=== PATIENT | female | born 1935 | race Caucasian/White ===

== ENCOUNTER 2018-04-10 14:44 | Inpatient (IN) | payer OTHER, MEDICARE ==
[~2018-04-10] VITALS: Ht 160 cm; Wt 67.1 kg
[~2018-04-10 14:44] MED LIST: BENADRYL25 MG PO; BIOTIN1 MG PO; BIOTIN1000 MCG PO; CALTRATE 600 +1 EAC1 PO; CYANOCOBAL1000 MCG/2 IM; DAILY MULTIPLE1 EACH PO; GLUCOSAMINE CO1 EAC3 PO; IRON325 M1 PO; LETROZOLE2.5 MG PO; OXYCODONE HCL5 MG PO; SENNA PLUS TAB1 EACH PO; TYLENOL REGULA325 MG PO; VITAMINS; XARELTO10 MG PO; [UNRECOGNIZED DRUG - OTHER]
[2018-04-10 15:54] LABS: BASOPHIL (%) 0.6 % (0-1); EOSINOPHIL (%) 0.5 % (0-5); HEMOGLOBIN 13.7 G/DL (11.9-15.5); IMMATURE GRANULOCYTE (%) 0.3 % (0.0-0.7); LYMPHOCYTE (%) 20.9 % (15-42); LYMPHOCYTE COUNT 1.3 K/uL (1.0-2.8); MCH 29.7 PG (29.0-34.0); MCHC 33.4 G/DL (30.0-36.0); MCV 88.9 FL (83-99); MONOCYTE (%) 12.3 % (3-12); MONOCYTE COUNT 0.8 K/uL (0-0.8); NEUTROPHIL (%) 65.4 % (45-76); NEUTROPHIL COUNT 4.1 K/uL (1.8-6.4); PLATELET COUNT 272 K/uL (156-360); RBC DIS.WIDTH-CV 15.2 % (11.8-14.6); RBC DIS.WIDTH-SD 49.3 % (39-53); RED BLOOD COUNT 4.61 M/uL (3.80-5.20); WHITE BLOOD COUNT 6.3 K/uL (4.1-10.2)
[2018-04-10 16:06] LABS: ALBUMIN 3.3 g/dL (3.2-4.8); CHLORIDE 106 mEq/L (99-109); POTASSIUM 4.6 mEq/L (3.7-5.4); SODIUM 137 mEq/L (136-147)
[2018-04-10 16:09] LABS: GLUCOSE 107 mg/dL (70-99); TOTAL PROTEIN 5.7 g/dL (6.4-8.3)
[2018-04-10 16:11] LABS: TOTAL BILIRUBIN 0.9 mg/dL (0.0-1.0)
[2018-04-10 16:12] LABS: ALKALINE PHOSPHATASE 71 IU/L (3-129); CREATININE 0.9 mg/dL (0.6-1.3); GFR ESTIMATE (CALCULATED) > 59 mL/min/
[2018-04-10 16:13] LABS: UREA NITROGEN (BUN) 23 mg/dL (9-23)
[2018-04-10 16:14] LABS: AST (GOT) 70 IU/L (2-34)
[2018-04-10 16:15] LABS: ALT (GPT) 102 IU/L (3-49)
[2018-04-10] MEDS ORDERED: PROAIR HFA8.5 GM IH (16:59)
[2018-04-10] MEDS ORDERED: LEVOFLOXACIN750 MG PO (17:00)
[2018-04-10] MEDS ORDERED: PHENERGAN DM SYR1 ML PO (17:04)
[2018-04-10 18:10] LABS: APPEARANCE CLEAR ((CLEAR)); BILIRUBIN NEGATIVE; BLOOD NEGATIVE; COLOR YELLOW ((YELLOW)); GLUCOSE (STRIP) NEGATIVE; KETONES 5; LEUKOCYTES NEGATIVE; NITRITE NEGATIVE; PROTEIN (STRIP) 30; SPECIFIC GRAVITY 1.024 (1.000-1.030); UCUL ADDED? NO; UROBILINOGEN 0.2 MG/DL (0.2-1.0)
[2018-04-10 20:40] VITALS: BP 108/69
[2018-04-11 00:25] VITALS: BP 110/79
[2018-04-11 04:55] VITALS: BP 110/75
[2018-04-11 07:25] VITALS: BP 100/66; BP 145/67
[2018-04-11 12:04] VITALS: BP 108/77
[2018-04-11 15:58] VITALS: BP 110/72
[2018-04-11 20:05] VITALS: BP 102/71
[2018-04-12] VITALS (7 sets, daily range): BP systolic 99–118; BP diastolic 63–81
[2018-04-13 04:00] VITALS: BP 122/77
[2018-04-13 07:49] VITALS: BP 120/68
[2018-04-13 08:15] VITALS: BP 157/81
[2018-04-13 11:46] VITALS: BP 154/87
[2018-04-13] MEDS ORDERED: GUAIFENESI100 MG/5 M PO (11:50)
[2018-04-13] MEDS ORDERED: AUGMENTIN875 MG PO (11:50)
[2018-04-13] MEDS ORDERED: SPIRIVA1 INHALATI IH (11:51)
[2018-04-13] MEDS ORDERED: VENTOLIN HFA18 GM IH (11:52)
[2018-04-16] MEDS ORDERED: AUGMENTIN875 MG PO (12:54)
== END 2018-04-13 13:54 | disposition home or self-care (01) | DRG 194 ==
LOC: EME 14:44 → CANRESERV 16:49 → EDOF 17:11 → ENRESERV 18:54 → 4SOUTH 19:45
PROVIDERS: Emergency Medicine
DX: J18.9 Pneumonia, unspecified organism (principal); J44.0 Chronic obstructive pulmonary disease with (acute) lower respiratory infection; E86.0 Dehydration; R09.02 Hypoxemia; J90 Pleural effusion, not elsewhere classified; Z85.3 Personal history of malignant neoplasm of breast; Z96.642 Presence of left artificial hip joint; Z66 Do not resuscitate
CPT/HCPCS: 71046; 80053; 81003; 83605; 84145 90; 85025; 87040; 87070; 87205; 87449; 93005; 94640; 94760; 94799; G0378; J0456; J0696; J2405; J7030